=== PATIENT | female | born 1955 | race Caucasian/White ===

== ENCOUNTER 2016-10-22 23:25 | Emergency (ER) | payer OTHER ==
--- NOTE | ~2016-10-22 | EKG ---
PATIENT: YUVAL BAKER UNIT #: [id number] Ventricular Rate: 103 BPM Atrial Rate: 103 BPM P-R Interval: 136 ms QRS Duration: 76 ms Q-T Interval: 328 ms QTC Calculation(Bezet): 429 ms P [place]: 50 degrees Calculated R [place]: 68 degrees Calculated T [place]: 50 degrees Diagnosis Line: Sinus tachycardia Diagnosis Line: Otherwise normal ECG Diagnosis Line: When compared with ECG of 28-NOV-2011 18:05, Diagnosis Line: No significant change was found Diagnosis Line: Confirmed by TORITO SCHWARTZ MD ([id number]) on 10/24/2016 Diagnosis Line: 12:03:18 PM INTERPRETING MD: LANA ADORNO
[~2016-10-22 23:25] MED LIST: ALAVERT10 MG PO; AMARYL PO; ASPIRIN81 M1; ASPIRIN81 M2 PO; ATORVASTATIN CA10 MG PO; BACTRIM DS TABL1 TA1 PO; CITALOPRAM HBR40 MG PO; CLARITIN10 MG PO; DIOVAN80 M1 PO; FARXIGA10 MG; FLEXERIL10 MG PO; IBUPROFEN800 MG PO; KLONOPIN PO; KLONOPIN1 MG PO; LANTUS INSULIN SQ; LANTUS SOLOSTAR3 ML SQ; LEVOTHROID25 MCG PO; LORTAB 10-3251 EACH PO; LORTAB 101 TAB 10/5 PO; LOSARTAN POTASS50 MG PO; LYRICA50 MG PO; METFORMIN; METFORMIN HCL500 M3 PO; NASONEX17 GM; NEURONTIN100 MG PO; OMEPRAZOLE20 M1 PO; PROTONIX PO; PYRIDIUM100 MG PO; SYNTHROID25 MCG; TESSALON200 MG; TIROSINT25 MCG PO; ZETIA PO; ZYRTEC10 M1 PO
[2016-10-22 23:41] LABS: BASOPHIL# 0.1 X10e3 (0-0.3); DIFF IND NO; EOSINOPHIL# 0.1 X10e3 (0-0.7); EOSINOPHIL% 0.4 % (0.0-7.0); HEMATOCRIT 46.4 % (35.0-45.0); HEMOGLOBIN 15.3 gm/dL (12.0-16.0); LYMPHOCYTE# 0.5 X10e3 (1.0-3.5); LYMPHOCYTE% 3.4 % (17.0-45.0); MEAN CELL VOLUME 90.5 FL (83-96); MEAN CORPUSCULAR HEMOGLOBIN 29.9 PG (28-34); MEAN PLATELET VOLUME 9.8 FL (6.5-11.5); MONOCYTE% 6.8 % (3.0-12.0); NEUTROPHIL# 12.5 X10e3 (1.5-7.1); NEUTROPHIL% 88.4 % (40-75); PLATELET COUNT 178 X10e3 (140-420); RED BLOOD COUNT 5.13 X10e (3.90-5.30); RED CELL DISTRIBUTION WIDTH 13.5 % (11.0-15.5); WHITE BLOOD COUNT 14.1 X10e3 (4.0-10.5)
[2016-10-22 23:44] LABS: PROTHROMBIN TIME (PATIENT) 11.5 SECONDS (9.5-12.4)
[2016-10-22 23:51] LABS: PARTIAL THROMBOPLASTIN TIME 27.4 SECONDS (25.6-38.1)
[2016-10-22 23:54] LABS: ALBUMIN SERUM 4.1 g/dL (3.5-5.0); BILIRUBIN, DIRECT 0.1 mg/dL (0.0-0.2); BILIRUBIN,INDIRECT 0.6 mg/dL (0.0-0.9); BILIRUBIN,TOTAL 0.7 mg/dL (0.2-2.0); CALCIUM SERUM 8.5 mg/dL (8.4-10.2); CREATININE SERUM 0.9 mg/dL (0.6-1.4); GLOM FILT RATE Estimated 69.5 mL/min (>60); POTASSIUM 3.8 mmol/L (3.5-5.1); PROTEIN TOTAL SERUM 7.1 g/dL (6.0-8.3)
[2016-10-22 23:55] LABS: POC - TROPONIN <0.05 ng/mL (<=0.05)
== END 2016-10-23 01:28 | disposition home or self-care (01) ==
LOC: SED 23:25
PROVIDERS: Emergency Medicine
DX: R10.13 Epigastric pain (principal); R11.2 Nausea with vomiting, unspecified; E78.5 Hyperlipidemia, unspecified; J45.909 Unspecified asthma, uncomplicated; I10 Essential (primary) hypertension; K21.9 Gastro-esophageal reflux disease without esophagitis; Z88.5 Allergy status to narcotic agent; Z88.1 Allergy status to other antibiotic agents; Z79.82 Long term (current) use of aspirin; Z79.899 Other long term (current) drug therapy
CPT/HCPCS: 36415; 80048; 80076; 82150; 82553; 83690; 84484; 85025; 85610; 85730; 93005; 96361; 96374; 99284; C9113; J2405